=== PATIENT | female | born 1995 | race Caucasian/White ===

== ENCOUNTER 2016-07-10 05:11 | Inpatient (IN) | payer MEDICAID ==
[~2016-07-10 05:11] MED LIST: BRETHINE 1 MG/ML SQ PRN; PITOCIN 30 UNITS/ LR 500 ML 500 ML IV SCH
[2016-07-10] MEDS ORDERED: PITOCIN 30 UNITS/ LR 500 ML 500 ML IV SCH (06:00)
[2016-07-10] MEDS: Lactated Ringers 1,000 ML IV SCH ×2 (06:07→18:52)
[2016-07-10 06:10] LABS: Mean Cell Volume 94.3 fl (78-100); Mean Platelet Volume 10.1 fl (6-9.5); Platelet Count 247 K/mm3 (150-450); Red Blood Count 3.84 M/mm3 (4.1-5.4); Red Cell Distribution Width 13.1 % (11.5-14.0)
[2016-07-10 09:01] LABS: Total Cells Counted 100
[2016-07-10 09:02] LABS: Platelet Estimate NORMAL (NORMAL)
[2016-07-10] MEDS ORDERED: Ephedrine Sulfate 50 MG/ML IV PRN (09:29)
[2016-07-10] MEDS ORDERED: Lactated Ringers 1,000 ML IV ONE (09:29)
[2016-07-10] MEDS ORDERED: OB EPIDURAL NAROPIN/SUFENTANIL IN NACL EPIDURAL PRN (09:29)
[2016-07-10] MEDS ORDERED: XYLOCAINE 1% HCL 20 ML MDV ONE (12:23)
[2016-07-10] MEDS ORDERED: LANSINOH 40 GM TOP PRN (12:55)
[2016-07-10] MEDS ORDERED: CORTISONE 1% CREAM TP PRN (12:55)
[2016-07-10] MEDS ORDERED: Anucort-HC SUPPOSITORY PR PRN (12:55)
[2016-07-10] MEDS ORDERED: Dulcolax 10 MG SUPP PR PRN (12:55)
[2016-07-10] MEDS ORDERED: TUCKS TP PRN (12:55)
[2016-07-10] MEDS ORDERED: Dermoplast Spray TP PRN (12:55)
[2016-07-10] MEDS ORDERED: Ambien 10 MG PO PRN (12:55)
[2016-07-10] MEDS: TYLENOL EXTRA STRENGTH 500 MG PO PRN (15:25)
[2016-07-10] MEDS ORDERED: Adacel Vial IM ONE (17:00)
[2016-07-10] MEDS: MOTRIN 400 MG PO PRN (19:20)
[2016-07-10] MEDS: Tylenol #3 Tablet PO PRN (21:43)
[2016-07-10] MEDS: Colace 100 MG PO SCH (21:44)
[2016-07-11] MEDS: Tylenol #3 Tablet PO PRN (04:31)
[2016-07-11 05:55] LABS: BASOPHIL % 0.1 % (0.0-0.4); Eosinophil % 1.1 % (0.00-5.0); Lymphocytes % 22.7 % (24.0-44.0); Monocytes % 8.1 % (0.0-12.0); Platelet Count 205 K/mm3 (150-450); Red Blood Count 3.39 M/mm3 (4.1-5.4); Red Cell Distribution Width 13.2 % (11.5-14.0); White Blood Count 15.2 K/mm3 (4.0-10.5)
[2016-07-11 05:57] LABS: Mean Corpuscular Hemoglobin 31.8 pg (26-32)
[2016-07-11] MEDS: MOTRIN 400 MG PO PRN ×3 (06:04→22:05)
[2016-07-11] MEDS: FERREX 150 PO SCH (10:40)
[2016-07-11] MEDS: TYLENOL EXTRA STRENGTH 500 MG PO PRN ×2 (10:40→19:14)
[2016-07-11] MEDS: Colace 100 MG PO SCH ×2 (10:40→22:05)
[2016-07-11] MEDS: Mylicon 80MG PO PRN ×3 (17:30→20:30)
[2016-07-12] MEDS: TYLENOL EXTRA STRENGTH 500 MG PO PRN (00:23)
[2016-07-12] MEDS: MOTRIN 400 MG PO PRN (05:03)
[2016-07-12] MEDS: Colace 100 MG PO SCH (09:03)
[2016-07-12] MEDS: FERREX 150 PO SCH (09:03)
--- NOTE | 2016-07-12 10:09 | PCM.DS ---
Discharge Summary Date of Admission: 07/10/16 07:45 Admitting Physician: ANNEL RIVERO Consults: Consults on Case 07/10/16 09:30 Notify Anesthesia Provider PRN 07/10/16 12:55 Notify Physician ROUTINE Primary Care Provider: ANNEL RIVERO Allergies Allergies No Known Drug Allergies Allergy (Verified 11/03/13 08:58) Hospital Summary - Hospital Course Hospital Course: patient delivered via on 07/10/[address] Rivero, no complications. baby girl, appears well bonded - Vitals & Intake/Output Vital Signs: Vital Signs Temperature 97.9 F 07/12/16 08:00 Pulse Rate 74 07/12/16 08:00 Respiratory Rate 18 07/12/16 08:00 Blood Pressure 119/64 07/12/16 08:00 O2 Sat by Pulse Oximetry 100 07/10/16 10:15 Intake & Output: Intake & Output 07/09/16 07/10/16 07/11/16 07/12/16 11:59 11:59 11:59 11:59 Intake Total 1000 2200 Output Total 200 Balance 1000 2000 Weight 86.183 kg - Lab Result Diagrams: 07/11/16 05:20 Micro Results-Entire Visit: Microbiology 07/10/16 12:26 Urine Culture - Final Urine, Catheterized MIXED PETE; 3 OR MORE TYPES. NO PREDOMINANT ORGANISM. NO FURTHER WORKUP. PLEASE RESUBMIT IF CLINICALLY INDICATED. Discharge Exam General Appearance: no apparent distress, alert Skin Exam: normal color, warm, dry Respiratory Exam: normal breath sounds, lungs clear, No respiratory distress Cardiovascular Exam: regular rate/rhythm, normal heart sounds Gastrointestinal/Abdomen Exam: soft, No tenderness, No mass Extremity Exam: normal inspection, normal range of motion Final Diagnosis/Problem List - Final Discharge Diagnosis/Problem (1) Normal vaginal delivery Current Visit: Yes Status: Acute - Discharge Disposition: Home, Self-Care Condition: Stable Prescriptions: No Action No Reportable Medications [No Reported Medications] Follow up with: ANNEL RIVERO [Primary Care Provider] - 1 Week
[2016-07-12 13:42] VITALS: PULSE 91; O2SAT 98
[2016-07-12 14:50] VITALS: BP 131/85
== END 2016-07-12 13:45 | disposition home or self-care (01) | DRG 775 ==
LOC: OB 05:11 → OBSVTOIN 07:45 → OB 07:45
PROVIDERS: ADMIT Family Medicine; ATTEND Family Medicine
PROC: 10E0XZZ Delivery of Products of Conception, External Approach (ICD-10-PCS; principal; 2016-07-10)
DX: O80 Encounter for full-term uncomplicated delivery (principal); Z3A.39 39 weeks gestation of pregnancy; Z37.0 Single live birth
CPT/HCPCS: 01967; 36415; 80307; 85025; 87086; 90715; G0378; J2590; J2795; A9270-GY

== ENCOUNTER 2018-05-06 06:57 | Emergency (ER) | payer BC, OTHER ==
[2018-05-06 07:10] VITALS: O2SAT 100
--- NOTE | 2018-05-06 07:24 | ERPHSYRPT ---
- History of Present Illness Time Seen by Provider: 05/06/18 07:15 Source: patient Exam Limitations: no limitations Patient Subjective Stated Complaint: Right ear pain that radiates down right side of face and to the right side of throat, went to [facility] yesterday Triage Nursing Assessment: Pt c/o of right sided ear pain that has radiated to her right side of face and throat, went to [facility] yesterday and was told that her ear was clogged and they flushed it with warm water and her pain has increased today and now radiates, denies any drainage, reports still able to hear out of the right ear but just feels "clogged", pain 7/10, denies any other problems Physician History: The patient is a 23-year-old female complaining of right ear pain yesterday. Today he the pain has settled into the right side of her jaw and throat. It hurts for her to swallow. She's had some chills. She was seen at [facility] yesterday for the ear pain and had her right ear lavage because she had a lot of cerumen. They did not find an infection. Her past medical history is unremarkable. Timing/Duration: gradual onset Severity: severe ENT Location: throat Prearrival Treatment: over the counter meds Modifying Factors: Improves With: nothing Associated Symptoms: ear pain (R), chills, jaw pain, neck pain, swollen glands, sore throat, difficulty swallowing Allergies/Adverse Reactions: No Known Drug Allergies Allergy (Verified 05/06/18 07:10) - Review of Systems Constitutional: Chills Eyes: No Symptoms Ears, Nose, & Throat: Ear Pain, Throat Pain, Painful Swallowing Respiratory: No Cough, No Dyspnea Cardiac: No Chest Pain, No Edema, No Syncope Abdominal/Gastrointestinal: No Abdominal Pain, No Nausea, No Vomiting, No Diarrhea Genitourinary Symptoms: No Dysuria Musculoskeletal: No Back Pain, No Neck Pain Skin: No Rash Neurological: No Dizziness, No Focal Weakness, No Sensory Changes Psychological: No Symptoms Endocrine: No Symptoms Hematologic/Lymphatic: No Symptoms Immunological/Allergic: No Symptoms All Other Systems: Reviewed and Negative - Past Medical History Pertinent Past Medical History: No Neurological History: No Pertinent History ENT History: No Pertinent History Cardiac History: No Pertinent History Respiratory History: No Pertinent History Endocrine Medical History: No Pertinent History Musculoskeletal History: No Pertinent History GI Medical History: No Pertinent History History: No Pertinent History Psycho-Social History: No Pertinent History Female Reproductive Disorders: No Pertinent History - Past Surgical History Past Surgical History: No Neuro Surgical History: No Pertinent History Cardiac: No Pertinent History Respiratory: No Pertinent History Gastrointestinal: No Pertinent History Genitourinary: No Pertinent History Musculoskeletal: No Pertinent History Female Surgical History: No Pertinent History Other Surgical History: tubes in ears as a child - Social History Smoking Status: Former smoker Exposure to second hand smoke: No Drug Use: none Patient Lives Alone: No - Female History Hx Now: No - Nursing Vital Signs Nursing Vital Signs: Initial Vital Signs Temperature 98.1 F 05/06/18 07:02 Pulse Rate 96 H 05/06/18 07:02 Blood Pressure 124/76 05/06/18 07:02 O2 Sat by Pulse Oximetry 100 05/06/18 07:02 Pain Scale Pain Intensity 5 - Physical Exam General Appearance: mild distress Eye Exam: bilateral eye: PERRL, EOMI Ear Exam: right ear: TM normal, left ear: other (cerumen impaction), bilateral ear: auricle normal, canal normal Nasal Exam: normal inspection Throat Exam: pharynx normal, moist mucus membranes, No tonsillar exudate Neck Exam: supple Cardiovascular/Respiratory Exam: normal breath sounds, regular rate/rhythm Abdominal Exam: non-tender, soft Neurologic Exam: alert, oriented x 3, sensation nml, No motor deficits Skin Exam: normal color, warm, dry SpO2 Interpretation: normal SpO2: 100 Oxygen Delivery: Room Air Ordered Tests: Active Orders 24 hr Category Date Time Status [place] Screen Stat Lab 05/06/18 07:53 Completed Medication Summary Discontinued Medications Generic Name Dose Route Start Last Admin Trade Name Peter PRN Reason Stop Dose Admin Ketorolac Tromethamine 60 mg 05/06/18 07:27 05/06/18 07:35 Toradol 30 Mg Injection IM 05/06/18 07:28 60 mg STAT ONE Administration Ketorolac Tromethamine Confirm 05/06/18 07:30 Toradol 30 Mg Injection Administered 05/06/18 07:31 Dose 60 mg .ROUTE .STK-MED ONE Lab/Rad Data: Laboratory Results 05/06/18 05/06/18 Range/Units 07:53 07:53 Monoscreen NEGATIVE (Negative) Group A Strep Antibody NEGATIVE (NEGATIVE) - Progress Progress: improved Counseled pt/family regarding: lab results, diagnosis - Departure Time of Disposition: 08:50 Departure Disposition: Home Clinical Impression: Acute viral pharyngitis Condition: Stable Critical Care Time: No Referrals: ANNEL KIM [Primary Care Provider] - Additional Instructions: You have viral pharyngitis (sore throat). You do not have strep throat. Your right ear is not infected. You were given Toradol 60 mg by IM in the ER. Take naproxen 500 mg 2 times a day as needed for pain. Do not take naproxen and ibuprofen at the same time. You may also take Tylenol 1000 mg every 8 hours as needed. Gargle with warm salt water as often as needed. Follow-up with your primary medical doctor as needed. Prescriptions: Naproxen 500 mg [Naprosyn 500 MG] 500 mg PO BIDPRN PRN #30 tablet MDD 2 PRN Reason: Pain
[2018-05-06] MEDS ORDERED: TORAdol 30 mg Injection IM ONE (07:27)
[2018-05-06] MEDS ORDERED: TORAdol 30 mg Injection ONE (07:30)
[2018-05-06 08:32] VITALS: BP 123/75; PULSE 92
== END 2018-05-06 08:59 | disposition home or self-care (01) ==
LOC: ED 06:57
DX: J02.9 Acute pharyngitis, unspecified (principal); H92.01 Otalgia, right ear; R68.83 Chills (without fever); M54.2 Cervicalgia; R68.84 Jaw pain
CPT/HCPCS: 36415; 86308; 87651; 96372; 99284; J1885

== ENCOUNTER 2024-07-06 09:55 | Observation (INO) | payer OTHER, MEDICAID ==
[2024-07-06 15:06] VITALS: RESP 20; O2SAT 99
[2024-07-06 16:50] VITALS: BP 130/78; PULSE 88
== END 2024-07-06 14:20 | disposition home or self-care (01) ==
LOC: OB 10:09
PROVIDERS: ADMIT Obstetrics & Gynecology; ATTEND Obstetrics & Gynecology
DX: O24.419 Gestational diabetes mellitus in pregnancy, unspecified control (principal); Z3A.38 38 weeks gestation of pregnancy
CPT/HCPCS: 59025; 99213; G0378; G0379

== ENCOUNTER 2024-07-06 11:35 | Inpatient (IN) | payer OTHER, MEDICAID ==
[2024-07-07 01:33] LABS: Appearance Clear (Clear); Bacteria None Seen /HPF (None Seen); Bilirubin Negative (Negative); Blood Moderate (Negative); Epithelial Cells Rare /HPF (None Seen); Glucose, Urine Negative (Negative); Hyaline Casts NONE SEEN /LPF (0-2); Ketones Negative (Negative); Leukocyte Esterase Trace (Negative); Nitrite Negative (Negative); Ph 5.5 (4.6-8.0); Protein,Urine Dip Negative (Negative); RBC 0-2 /HPF (0-5); Specific Gravity 1.015 (1.005-1.030); WBC 0-2 /HPF (0-5)
[2024-07-07 01:43] LABS: Amphetamine,Urine NEGATIVE (NEGATIVE); Barbiturate,Urine NEGATIVE (NEGATIVE); Benzodiazepine,Urine NEGATIVE (NEGATIVE); Cocaine,Urine NEGATIVE (NEGATIVE); Methadone,Urine NEGATIVE (NEGATIVE); Opiate,Urine NEGATIVE (NEGATIVE); PCP,Urine NEGATIVE (NEGATIVE); THC,Urine NEGATIVE (NEGATIVE)
[2024-07-07 01:53] LABS: AMNISURE TEST RESULTS NEGATIVE (NEGATIVE)
[2024-07-07] MEDS ORDERED: Ephedrine Sulfate 50 MG/ML IV PRN (07:50)
[2024-07-07] MEDS ORDERED: Zofran 4 MG/2 ML VIAL IV PRN (07:50)
[2024-07-07 09:10] LABS: BASOPHIL % 0.3 % (0.1-1.2); Basophil (Absolute #) 0.04 x10^3/uL (0.01-0.08); Eosinophil % 0.7 % (0.7-5.8); Eosinophil (Absolute #) 0.11 x10^3/uL (0.04-0.36); Hematocrit 37.1 % (34.1-44.9); Hemoglobin 12.9 g/dL (11.2-15.7); IMMATURE GRAN # 0.11 x10^3u/L (0.001-0.031); IMMATURE GRAN % 0.7 % (0.001-0.429); Lymphocyte (Absolute #) 2.26 x10^3/uL (1.18-3.74); Lymphocytes % 15.2 % (19.3-51.7); Mean Cell Volume 90.9 fL (79.4-94.8); Mean Corpuscular Hemoglobin 31.6 pg (25.6-32.2); Mean Corpuscular Hgb Concent. 34.8 g/dL (32.2-35.5); Mean Platelet Volume 9.9 fL (9.4-12.3); Monocyte (Absolute #) 0.59 x10^3/uL (0.24-0.86); Neutrophil % 79.1 % (34.0-71.1); Platelet Count 214 x10^3/uL (182-369); Red Blood Count 4.08 x10^6/uL (3.93-5.22); Red Cell Distribution Width 13.2 % (11.7-14.4); White Blood Count 14.9 x10^3/uL (3.98-10.04)
[2024-07-07] MEDS: Lactated Ringers 1,000 ML IV SCH (09:10)
[2024-07-07] MEDS: Lactated Ringers 1,000 ML IV ONE (09:10)
[2024-07-07] MEDS: PITOCIN 30 UNITS/ LR 500 ML 30 UNITS/500 ML PLAST..BAG IV SCH (09:11)
[2024-07-07] MEDS: FENTANYL 2 MCG-BUPIV 0.125%-NS 250 ML Epidur 250 ML EPIDURAL SCH (09:11)
[2024-07-07 10:05] LABS: ABO TYPING AB; Antibody Screen NEGATIVE (NEGATIVE); RH TYPING POSITIVE
[2024-07-07] MEDS ORDERED: TUCKS TP PRN (14:33)
[2024-07-07] MEDS ORDERED: Dermoplast Spray TP PRN (14:33)
[2024-07-07] MEDS: Docusate Sodium 100 MG PO SCH (20:07)
[2024-07-07] MEDS: MOTRIN 400 MG PO PRN (20:08)
[2024-07-08] MEDS: TYLENOL EXTRA STRENGTH 500 MG PO PRN (02:03)
[2024-07-08 04:53] LABS: Absolute Neutrophil Ct (ANC) 10.58 x10^3/uL (1.56-6.13); BASOPHIL % 0.3 % (0.1-1.2); Basophil (Absolute #) 0.04 x10^3/uL (0.01-0.08); Eosinophil % 0.6 % (0.7-5.8); Eosinophil (Absolute #) 0.08 x10^3/uL (0.04-0.36); Hematocrit 35.5 % (34.1-44.9); Hemoglobin 12.2 g/dL (11.2-15.7); IMMATURE GRAN # 0.08 x10^3u/L (0.001-0.031); IMMATURE GRAN % 0.6 % (0.001-0.429); Lymphocyte (Absolute #) 1.86 x10^3/uL (1.18-3.74); Lymphocytes % 13.6 % (19.3-51.7); Mean Cell Volume 91.5 fL (79.4-94.8); Mean Corpuscular Hemoglobin 31.4 pg (25.6-32.2); Mean Corpuscular Hgb Concent. 34.4 g/dL (32.2-35.5); Mean Platelet Volume 9.9 fL (9.4-12.3); Monocyte (Absolute #) 1.03 x10^3/uL (0.24-0.86); Monocytes % 7.5 % (4.7-12.5); Neutrophil % 77.4 % (34.0-71.1); Platelet Count 181 x10^3/uL (182-369); Red Blood Count 3.88 x10^6/uL (3.93-5.22); Red Cell Distribution Width 13.1 % (11.7-14.4); White Blood Count 13.7 x10^3/uL (3.98-10.04)
--- NOTE | 2024-07-08 07:45 | PCM.NOTE ---
Date and Time: 07/08/24 0744 Subjective Assessment: ppd 1 sp pt resting in bed and doing well able to ambulate and tolerate diet vss afebrile abd; soft uterus; firm lochia; mild hgb; 12 a/p sp ppd 1 dc home tomorrow fu office 3 wks Objective Data Vital Signs: Vital Signs - 24 hr Temp Pulse Resp BP BP Pulse Ox 07/08/24 02:00 97.6 F 103 H 20 114/70 96 07/07/24 19:15 98.0 F 92 H 20 118/68 98 07/07/24 18:00 97.4 F 86 20 134/80 98 07/07/24 17:00 97.4 F 89 20 128/72 98 07/07/24 16:00 97.4 F 88 20 120/69 97 07/07/24 15:30 97.4 F 78 20 121/87 96 07/07/24 15:00 97.4 F 78 20 142/79 100 07/07/24 14:45 97.4 F 81 20 122/64 96 07/07/24 14:30 97.4 F 86 20 122/64 96 07/07/24 14:15 97.4 F 88 20 120/69 97 07/07/24 14:00 97.4 F 88 20 122/76 120/69 96 07/07/24 13:45 97.4 F 88 20 119/79 96 07/07/24 13:30 97.4 F 75 20 112/70 96 07/07/24 13:15 97.4 F 79 20 116/72 95 07/07/24 13:00 97.4 F 84 20 131/81 97 07/07/24 12:45 97.4 F 71 20 130/74 97 07/07/24 12:30 97.4 F 79 20 116/69 97 07/07/24 12:15 97.4 F 82 20 106/73 97 07/07/24 12:00 97.4 F 86 20 101/77 97 07/07/24 11:45 97.4 F 96 H 20 115/56 97 07/07/24 11:30 97.9 F 76 20 121/63 96 07/07/24 11:15 97.9 F 98 H 20 121/55 96 07/07/24 11:00 97.9 F 99 H 20 121/64 97 07/07/24 10:45 97.9 F 93 H 20 140/70 97 07/07/24 10:30 97.9 F 93 H 20 140/70 97 07/07/24 10:15 97.9 F 90 20 136/81 97 07/07/24 10:00 97.9 F 100 H 20 130/82 130/82 100 07/07/24 09:00 97.9 F 80 20 129/77 97 07/07/24 08:19 75 20 126/79 07/07/24 08:00 97.9 F 75 20 126/79 Pain Assessment - Last Documented Pain Intensity [Lower] 4 Pain Intensity 4 Pain Scale Used [facility] Intake and Output: Intake & Output 07/05/24 07/06/24 07/07/24 07/08/24 11:59 11:59 11:59 11:59 Intake Total 1500 2800 Output Total 508 Balance 1500 2292 Weight 89.981 kg Lab Results: Lab Results-Last 24 Hours 07/07/24 07/07/24 07/08/24 Range/Units 09:00 09:00 04:51 WBC 14.9 H 13.7 H (3.98-10.04) x10^3/uL RBC 4.08 3.88 L (3.93-5.22) x10^6/uL Hgb 12.9 12.2 (11.2-15.7) g/dL Hct 37.1 35.5 (34.1-44.9) % MCV 90.9 91.5 (79.4-94.8) fL MCH 31.6 31.4 (25.6-32.2) pg MCHC 34.8 34.4 (32.2-35.5) g/dL RDW 13.2 13.1 (11.7-14.4) % Plt Count 214 181 L (182-369) x10^3/uL MPV 9.9 9.9 (9.4-12.3) fL Gran % 79.1 H 77.4 H (34.0-71.1) % Immature Gran % (Auto) 0.7 H 0.6 H (0.001-0.429) % Nucleat RBC Rel Count 0.0 0.0 (0.00-0.2) % Eos # (Auto) 0.11 0.08 (0.04-0.36) x10^3/uL Immature Gran # (Auto) 0.11 H 0.08 H (0.001-0.031) x10^3u/L Absolute Lymphs (auto) 2.26 1.86 (1.18-3.74) x10^3/uL Absolute Monos (auto) 0.59 1.03 H (0.24-0.86) x10^3/uL Absolute Nucleated RBC 0.00 0.00 (0.00-0.012) x10^3u/L Lymphocytes % 15.2 L 13.6 L (19.3-51.7) % Monocytes % 4.0 L 7.5 (4.7-12.5) % Eosinophils % 0.7 0.6 L (0.7-5.8) % Basophils % 0.3 0.3 (0.1-1.2) % Absolute Granulocytes 11.80 H 10.58 H (1.56-6.13) x10^3/uL Basophils # 0.04 0.04 (0.01-0.08) x10^3/uL ABO Group AB Rh Factor POSITIVE Antibody Screen NEGATIVE (NEGATIVE) Assessment/Plan (1) Vaginal delivery Current Visit: Yes Status: Acute Code(s): O80 - ENCOUNTER FOR FULL-TERM UNCOMPLICATED DELIVERY
--- NOTE | 2024-07-08 07:48 | PCM.DS ---
Discharge Summary Date of Admission: 07/07/24 11:35 Admitting Physician: PAMELA BROWNE DO Consults: Consults on Case 07/07/24 18:15 Navigation ONCE Primary Care Provider: NO FAMILY DOCTOR Allergies Allergies No Known Drug Allergies Allergy (Verified 06/20/24 13:17) Hospital Summary - Hospital Course Hospital Course: pt admitted on july 06 for being in labor at 38 plus weeks and delivered live baby boy via on july 07 without complication. perineum intact. pt did very well during period with stable hgb at 12 and was able to ambulate and tolerate diet. pt advised to fu in office in 3 wks for care and all questions were answered to her satisfaction. pt's vitals were stable prior to discharge. - Vitals & Intake/Output Vital Signs: Vital Signs Temperature 97.6 F 07/08/24 02:00 Pulse Rate 103 H 07/08/24 02:00 Respiratory Rate 20 07/08/24 02:00 Blood Pressure 114/70 07/08/24 02:00 O2 Sat by Pulse Oximetry 96 07/08/24 02:00 Intake & Output: Intake & Output 07/05/24 07/06/24 07/07/24 07/08/24 11:59 11:59 11:59 11:59 Intake Total 1500 2800 Output Total 508 Balance 1500 2292 Weight 89.981 kg - Lab Result Diagrams: 07/08/24 04:51 Lab Results-Last 24 Hrs: Lab Results-Last 24 Hours 07/07/24 07/07/24 07/08/24 Range/Units 09:00 09:00 04:51 WBC 14.9 H 13.7 H (3.98-10.04) x10^3/uL RBC 4.08 3.88 L (3.93-5.22) x10^6/uL Hgb 12.9 12.2 (11.2-15.7) g/dL Hct 37.1 35.5 (34.1-44.9) % MCV 90.9 91.5 (79.4-94.8) fL MCH 31.6 31.4 (25.6-32.2) pg MCHC 34.8 34.4 (32.2-35.5) g/dL RDW 13.2 13.1 (11.7-14.4) % Plt Count 214 181 L (182-369) x10^3/uL MPV 9.9 9.9 (9.4-12.3) fL Gran % 79.1 H 77.4 H (34.0-71.1) % Immature Gran % (Auto) 0.7 H 0.6 H (0.001-0.429) % Nucleat RBC Rel Count 0.0 0.0 (0.00-0.2) % Eos # (Auto) 0.11 0.08 (0.04-0.36) x10^3/uL Immature Gran # (Auto) 0.11 H 0.08 H (0.001-0.031) x10^3u/L Absolute Lymphs (auto) 2.26 1.86 (1.18-3.74) x10^3/uL Absolute Monos (auto) 0.59 1.03 H (0.24-0.86) x10^3/uL Absolute Nucleated RBC 0.00 0.00 (0.00-0.012) x10^3u/L Lymphocytes % 15.2 L 13.6 L (19.3-51.7) % Monocytes % 4.0 L 7.5 (4.7-12.5) % Eosinophils % 0.7 0.6 L (0.7-5.8) % Basophils % 0.3 0.3 (0.1-1.2) % Absolute Granulocytes 11.80 H 10.58 H (1.56-6.13) x10^3/uL Basophils # 0.04 0.04 (0.01-0.08) x10^3/uL ABO Group AB Rh Factor POSITIVE Antibody Screen NEGATIVE (NEGATIVE) Final Diagnosis/Problem List - Final Discharge Diagnosis/Problem (1) Vaginal delivery Current Visit: Yes Status: Acute Code(s): O80 - ENCOUNTER FOR FULL-TERM UNCOMPLICATED DELIVERY - Discharge Disposition: Home, Self-Care Condition: Stable Prescriptions: No Action Metformin HCl 500 mg [Glucophage 500 MG] 500 mg PO DAILY Follow up with: DOCTOR,NO FAMILY [Primary Care Provider] - PAMELA BROWNE DO [ACTIVE STAFF] - 3 weeks
[2024-07-08] MEDS: FERREX 150 PO SCH (08:15)
[2024-07-08 17:53] LABS: RPR Non Reactive (Non Reactive)
[2024-07-08] MEDS: LANSINOH 40 GM TOP PRN (20:16)
[2024-07-09 02:32] VITALS: TEMP 97.6; O2SAT 96
[2024-07-09 12:17] VITALS: BP 107/63; PULSE 73; RESP 14
== END 2024-07-09 15:10 | disposition home or self-care (01) | DRG 807 ==
LOC: OB 11:35 → OBSVTOIN 07-07 11:35
PROVIDERS: ADMIT Obstetrics & Gynecology; ATTEND Obstetrics & Gynecology
PROC: 10E0XZZ Delivery of Products of Conception, External Approach (ICD-10-PCS; principal; 2024-07-07)
DX: O80 Encounter for full-term uncomplicated delivery (principal); Z37.0 Single live birth; Z3A.38 38 weeks gestation of pregnancy
CPT/HCPCS: 36415; 59400; 80307; 81001; 84112; 85025; 86592; 86850; 86900; 86901; 87086; G0378; G0379; J2590; A9270-GY